=== PATIENT | female | born 1965 | race Caucasian/White ===

== ENCOUNTER 2019-08-23 05:34 | Observation (INO) ==
--- NOTE | 2019-08-16 10:36 | Anesthesiology Consultation ---
Date of Service August 16, 2019 Assessment & Plan (1) Encounter for pre-operative examination: Await surgeon-ordered pre-op labs. If not completed prior to DOS will do AM DOS. Chart Review Chart Review: Acceptable Risk for Surgery (pending pre-op labs) and Patient NOT seen in Pre Admission Testing History Surgery Operation Date: 08/23/19 07:00 Proposed Procedures p Exam Under Anesthesia, Transvaginal Hysterectomy, Cystoscopy - Lucita Chan MD Height/Weight Height: 5 ft 4 in Weight: 58.967 kg Allergies Allergy/AdvReac Type Severity Reaction Status Date / Time No Known Drug Allergies Allergy Verified 08/07/19 11:36 Medications Home Medications Medication Instructions Recorded Confirmed Last Taken valacyclovir 1 gram tablet 2,000 mg PO BID PRN 1 Days #30 tab 06/18/19 08/07/19 Unknown multivitamin 2 tab PO QAM 08/07/19 08/07/19 Unknown Past Medical History Medical History Cold sore Past Family History Family History Mother Colorectal cancer Hypertension Heart disease, hypertensive Myocardial infarction Brother Diabetes Denies family history of Ovarian cancer Prostate cancer Breast cancer Past Surgical History Surgical History H/O knee surgery R meniscus repair. History of ankle surgery OATS of R ankle. 2013 History of colonoscopy History of dilatation and curettage S/P ACL repair L knee 2019 Social History Smoking Status: Never smoker Do You Dip or Chew Tobacco: No Hx Alcohol Use: Yes Alcohol type: wine alcohol intake frequency: holidays/special occasions only Hx Substance Use: No substance use type: does not use Testing Electrocardiogram Date: 05/14/19 Findings: + SB @ (55bpm) Septal infarct. No significant change from 08/21/12.
[2019-08-23] MEDS ORDERED: LACTATED RINGER'S 1,000 ML IV SCH (06:00)
[2019-08-23] MEDS ORDERED: LR 15ML/HR IV SCH (06:00)
[2019-08-23] MEDS ORDERED: BUPIVACAINE/EPINEPHRINE 0.5% MPF 1:200,000 10 ML VIAL ONE ×2 (06:38→07:53)
[2019-08-23] MEDS ORDERED: PROPOFOL IV EMULSION 10 MG/ML 20 ML VIAL IV ONE (06:40)
[2019-08-23] MEDS ORDERED: LIDOCAINE HCL 2% 2 ML VIAL/AMP(20MG/ML) INFIL ONE (06:40)
[2019-08-23] MEDS ORDERED: DEXAMETHASONE SOD INJ 4 MG/ML VIAL ONE (06:40)
[2019-08-23] MEDS ORDERED: ONDANSETRON INJ 2 MG/ML 2 ML VIAL ONE (06:40)
[2019-08-23] MEDS ORDERED: MIDAZOLAM HCL 1 MG/ML 2ML VIAL ONE (06:41)
[2019-08-23] MEDS ORDERED: fentaNYL citrate 100 MCG/2 ML VIAL ONE ×2 (06:41→10:08)
--- NOTE | 2019-08-23 06:56 | History & Physical Bridge Note ---
Date of Service August 23, 2019 History & Physical Bridge Note I have examined the patient, reviewed the History & Physical and in the interval since the performance of the History & Physical I have noted the following changes of clinical significance: no changes noted
[2019-08-23] MEDS: CEFAZOLIN 2000MG 2,000 MG/15 ML SYR IV SCH ×2 (07:00→07:15)
[2019-08-23] MEDS ORDERED: PREMARIN VAG CRM 14 APPLN/30 GM TUBE ONE (09:01)
[2019-08-23] MEDS ORDERED: GLYCOPYRROLATE 0.2 MG/ML VIAL ONE (09:11)
[2019-08-23] MEDS ORDERED: NEOSTIGMINE METHYLSULFATE 5 MG/5 ML SYR ONE (09:11)
--- NOTE | 2019-08-23 09:25 | Post Operative Brief Note ---
Immediate Post Op Note v1 Date of Surgery August 23, 2019 Pre & Post Diagnosis Operation Date: 08/23/19 07:00 Pre-Op Diagnosis: Endometrial Intraepithelial Neoplasia Post-Op Diagnosis: Endometrial Intraepithelial Neoplasia I identified the patient and participated in the time-out.: Yes Procedure Operation Date: 08/23/19 07:00 Actual Procedures p Exam Under Anesthesia, Transvaginal Hysterectomy, Bilateral Salpingectomy, Kasper Culdoplasty, Cystoscopy(Not Applicable) - Lucita Joshua MD Surgeon Lucita Joshua MD Manager Primary Dr Amado, MUSA Cavazos Estimated Blood Loss 100 Findings Consistent with Post-Op Diagnosis Drains Choi Catheter (choi inserted prior to procedure start by Dr. Oliva without difficulty) Anesthesia Type General Complications none Disposition Accompanied Patient To Recovery: Yes Disposition: Recovery Room
[2019-08-23] MEDS ORDERED: ONDANSETRON INJ 2 MG/ML 2 ML VIAL IV PRN ×3 (10:04→15:32)
[2019-08-23] MEDS ORDERED: fentaNYL citrate 100 MCG/2 ML VIAL IV PRN (10:04)
[2019-08-23] MEDS ORDERED: ATROPINE SULFATE 0.1 MG/ML 10ML SYR IV PRN (10:04)
[2019-08-23] MEDS ORDERED: ePHEDrine sulfate 50 MG/ML AMP IV PRN (10:04)
--- NOTE | 2019-08-23 10:44 | Operative Report (OR) ---
DATE OF OPERATION: 08/23/2019 PREOPERATIVE DIAGNOSES: The patient is a 54-year-old , perimenopausal female with abnormal uterine bleeding, history of untreated endometrial hyperplasia and endometrial intraepithelial neoplasia per pathology collected by hysteroscopy and D& C in May of 2019. POSTOPERATIVE DIAGNOSIS: Same. PROCEDURES: Exam under anesthesia, transvaginal hysterectomy, bilateral salpingectomy, Kasper culdoplasty and cystoscopy. SURGEON: Lucita Joshua MD PARTY HOST/HOSTESS: Cameron Amado and MUSA Cavazos. EBL: 100 mL DRAINS: Barnes catheter drained 25 mL of clear urine. ANESTHESIA: General endotracheal. COMPLICATIONS: None. IV FLUIDS: 1200 mL of lactated ringer. FINDINGS: Exam under anesthesia revealed stage I uterine prolapse and cystocele, anteverted 8-week size uterus and nonpalpable adnexa. PROCEDURE: The patient was taken to the operating room where general anesthesia was given without difficulty. She was placed in dorsal lithotomy position, prepared and draped in usual sterile fashion. Barnes catheter was inserted into the bladder to drain. Exam under anesthesia was done with above findings and gloves were changed A weighted speculum was placed in the patient's vagina and the bladder was retracted with Trevino retractors and cervix was visualized, grasped with single tooth tenaculum. The vagina around the cervix was infiltrated with 0.5% lidocaine with epinephrine circumferentially. The vaginal mucosa around the cervix was incised with the tip of Bovie circumferentially and then was dissected off sharply with Tinoco scissors and then pushed back bluntly with the tip of finger with sponge on. Vaginal lateral serrano and bladder were retracted by retractor by assistants. Then the vaginal wall on posterior fornix was held with pick ups shoeing the reflection and posterior cul-de-sac was entered with the tip of Metzenbaum scissors and the peritoneum was identified. A suture was placed holding the posterior culde sac peritoneum and vagina wall. The peritenoneum was extended laterally with the tip of scissors and then the long weighted speculum was placed in the posterior cul-de-sac to provide retraction. Minimal Clear fluid was obtained from the cul-de-sac. Then the sacrouterine ligaments were felt bilaterally. They were held with Elva clamps, cut and suture ligated x2 and then cardinal ligaments were also felt bilaterally. They were held with Elva clamps, cut and suture ligated on both sides and then bladder was retracted down. Anterior vaginal wall was held with pick ups and the reflection of anterior cul-de-sac was seen. It was entered without difficulty with Metzenbaum scissors and then a retractor placed under the bladder. The uterine arteries on both sides were coagulated x3 and cut with handheld LigaSure and superior branches were also coagulated and cut and then broad ligament on both sides were coagulated and cut with the handheld LigaSure. The right pedicle of the right uterine cornua was held with Elva clamps, cut and suture ligated and then a free tie was also placed behind the first suture and then the left pedicle on the left cornua of the uterus was also held with Elva clamps, cut and suture ligated with 0 Vicryl and then another free tie was placed behind the suture. Excellent hemostasis was achieved. Uterus was taken out from the field. Attention was made to place a sponge with tail in the cul-de-sac to prevent the bowel was coming and all vaginal serrano were retracted with my assistants. Then the right fallopian tube was identified on the cornual pedicle, held with Michi clamps and excised completely with handheld LigaSure. Followed by left fallopian tube which was was identified, grasped with the Michi clamps, again excised completely with handheld LigaSure. Excellent hemostasis was achieved. The pedicles were checked again and found to be hemostatic. Then next we proceeded the Kasper suture and #1 Vicryl was placed from the posterior vagina into the cul-de-sac and then small bites from peritoneum were taken along the cul-de-sac and then brought to the sacrouterine ligaments on both sides and then brought out from the vagina mucosa 1 cm next to the entrance. It was tagged to be tied later. The vagina mucosa was closed with 0 Vicryl in a running fashion. Excellent hemostasis was achieved. Then cystoscopy was done and the bladder was found to be normal. No sutures, no bleeding noted and both ureteral openings were seen and ejecting clear urine on both sides. Cystoscopy was ended and new sterile Barnes catheter was placed into the bladder. The Kasper suture in the vagina was tied up in the vagina cuff and then cut and then vagina was packed with Premarin cream soaked vaginal packing to be kept for 24 hours and then the procedure was ended. All the sponge, needle, instrument count was correct x3. The patient was cleaned, dried, taken out from lithotomy position and she was extubated successfully and she was taken to recovery room in stable condition. No complications happened. I was present and Dr. Amado and MUSA Cavazos were present during whole procedure assisting with the procedure. She received 2 grams of cefazolin before surgery. I attest to the content of the Intraoperative Record and any orders documented therein. Any exceptions are noted below. DEBRA
[2019-08-23] MEDS ORDERED: OXYCODONE HCL IR 5 MG TAB (IMMEDIATE RELEASE) PO PRN (11:15)
[2019-08-23] MEDS: LACTATED RINGER'S 1,000 ML IV SCH ×2 (11:52→21:17)
--- NOTE | 2019-08-23 12:18 | Anesthesiology Progress Note ---
Date of Service August 23, 2019 Anesthesia Post Procedure Vital Signs Vital Signs: Temp Pulse Pulse Pulse Resp BP Pulse Ox 08/23/19 11:15 37.1 C 68 18 109/69 96 08/23/19 10:45 65 16 108/64 97 08/23/19 10:30 36.1 C L 54 L 15 109/66 96 08/23/19 10:20 54 L 13 102/67 93 08/23/19 10:05 55 L 19 111/67 100 08/23/19 09:59 36.1 C L 60 13 105/70 100 08/23/19 05:52 36.7 C 75 20 118/79 96 Pain Intensity Lower Abdomen: Pain Intensity: 5 Transfer of Care Handoff Completed per policy Notes Mental Status: alert / awake / arousable Patient Amnestic to Procedure: Yes Nausea / Vomiting: adequately controlled Pain: adequately controlled Airway Patency, RR, SpO2: stable & adequate BP & HR: stable & adequate Hydration State: stable & adequate Anesthetic Complications: no major complications apparent
[2019-08-23] MEDS ORDERED: KETOROLAC TROMETHAMINE 15 MG/ML VIAL IV PRN (12:22)
[2019-08-23] MEDS ORDERED: MEPERIDINE HCL 25 MG/ML CARP/VIAL IV PRN (12:22)
[2019-08-23] MEDS: SIMETHICONE 80 MG CHEW PO SCH ×2 (12:38→17:57)
--- NOTE | 2019-08-23 13:50 | Obstetrical Progress Note ---
Date of Service August 23, 2019 Assessment & Plan Admission and Anticipated Discharge Date Admission Date: August 23, 2019 Subjective Postop check Patient is seen and examined Feels well, no complaints Pain is under control with meds No CP/ SOB/ Dizziness/ N&V/ VB/ Leg pain Not OOB yet Tolerating clears Explained about the surgery and findings Vital Signs Temp Pulse Pulse Pulse Resp BP Pulse Ox 08/23/19 13:15 36.5 C 81 18 117/70 99 08/23/19 12:15 36.5 C 63 18 108/68 98 08/23/19 11:45 36.5 C 70 18 109/72 97 08/23/19 11:15 37.1 C 68 18 109/69 96 08/23/19 10:45 65 16 108/64 97 08/23/19 10:30 36.1 C L 54 L 15 109/66 96 08/23/19 10:20 54 L 13 102/67 93 08/23/19 10:05 55 L 19 111/67 100 08/23/19 09:59 36.1 C L 60 13 105/70 100 08/23/19 05:52 36.7 C 75 20 118/79 96 Intake & Output 08/22/19 08/23/19 08/23/19 22:59 06:59 14:59 Intake Total 1700 / 1700 Output Total 250 / 250 Balance 1450 / 1450 Weight 60.2 kg Intake: IV 200 / 200 Lr 1,000 ml @ 15 mls/hr IV . 200 / 200 Q24H [facility] Rx#:[id number] IV Perioperative 1500 / 1500 Output: Estimated Blood Loss 100 / 100 Urine Amount (Catheter) 150 / 150 Choi/Indwelling 150 / 150 PE: General: Alert, orientedx3, NAD CVS: S1S2 RRR Lungs: CTAB Abd: soft, NT, ND, BS+, No VB, packing tip dry Ext: NT, no edema, SCD's on AP: 54 yo female s/p EUA, TVH, BL Salpingectomy, Cystoscopy , pod#0 VSS Afebrile doing well Continue to routine postop care Encourage PO intake, may ambulate D/C choi and packing in am Results & Data ([facility]) Vital Signs (Past 12 Hours) Vital Signs Temp Pulse Pulse Pulse Resp BP Pulse Ox 08/23/19 13:15 36.5 C 81 18 117/70 99 08/23/19 12:15 36.5 C 63 18 108/68 98 08/23/19 11:45 36.5 C 70 18 109/72 97 08/23/19 11:15 37.1 C 68 18 109/69 96 08/23/19 10:45 65 16 108/64 97 08/23/19 10:30 36.1 C L 54 L 15 109/66 96 08/23/19 10:20 54 L 13 102/67 93 08/23/19 10:05 55 L 19 111/67 100 08/23/19 09:59 36.1 C L 60 13 105/70 100 08/23/19 05:52 36.7 C 75 20 118/79 96
[2019-08-23] MEDS: IBUPROFEN 600 MG TAB PO SCH ×2 (13:59→17:57)
[2019-08-23] MEDS: ACETAMINOPHEN 500 MG TAB PO SCH ×2 (14:00→20:00)
[2019-08-23] MEDS ORDERED: CEFAZOLIN 2000MG 2,000 MG/15 ML SYR IV ONE (15:00)
[2019-08-23] MEDS: DOCUSATE SODIUM 100 MG CAP PO SCH (21:11)
[2019-08-24] MEDS: IBUPROFEN 600 MG TAB PO SCH ×2 (00:04→05:28)
[2019-08-24] MEDS: SIMETHICONE 80 MG CHEW PO SCH ×2 (00:04→05:28)
[2019-08-24] MEDS: ACETAMINOPHEN 500 MG TAB PO SCH (05:29)
[2019-08-24 05:43] LABS: Basophils # (auto) 0.02 K/uL (0-0.2); Basophils % (auto) 0.2 %; Eosinophils % (auto) 1.1 %; Hematocrit (blood only) 34.1 % (37-47); Hemoglobin 11.7 g/dL (12.0-16.0); Immature Granulocytes # (auto) 0.01 K/uL (0.00-0.02); Immature Granulocytes % (auto) 0.1 %; Lymphocytes # (auto) 2.08 K/uL (1.2-3.4); Lymphocytes % (auto) 23.9 %; Mean Corpuscular Hemoglobin 32.7 pg (25-34); Mean Corpuscular Hgb Conc 34.3 g/dL (32-36); Mean Corpuscular Volume 95.3 fL (80-100); Mean Platelet Volume 9.6 fL (7.4-10.4); Monocytes # (auto) 0.71 K/uL (0.11-0.59); Monocytes % (auto) 8.2 %; Neutrophils # (auto) 5.79 K/uL (1.4-6.5); Neutrophils % (auto) 66.5 %; Platelet Count 213 K/uL (130-400); RDW Coefficient of Variation 13.1 % (11.5-14.5); RDW Standard Deviation 45.6 fL (36.4-46.3); Red Blood Count 3.58 M/uL (4.2-5.4); White Blood Count 8.71 K/uL (4.8-10.8)
[2019-08-24 06:09] LABS: BUN Creatinine Ratio 10.6 (10-20); Calcium 8.2 mg/dl (8.5-10.1); Creatinine Clr Calc Pharmacy 64.6 ml/min; Est GFR (African American) 88.8; Est GFR (Non-African American) 76.6; Potassium 3.9 mmol/L (3.5-5.1)
[2019-08-24] MEDS: LACTATED RINGER'S 1,000 ML IV SCH (07:41)
[2019-08-24] MEDS: DOCUSATE SODIUM 100 MG CAP PO SCH (08:54)
--- NOTE | 2019-08-24 09:55 | Obstetrical Progress Note ---
Date of Service August 24, 2019 Assessment & Plan Admission and Anticipated Discharge Date Admission Date: August 23, 2019 Subjective Patient is seen and examined. She feels well, no complaints. Pain is under control with oral meds. Motrin and Tylenol only Ambulating without dizziness Tolerating regular diet with out N&V Flatus + BM neg No Vaginal Bleeding No fever/ chills/ CP/ SOB/ N&V/ Leg pain Vital Signs Temp Pulse Resp BP Pulse Ox 08/24/19 07:40 36.6 C 64 16 106/71 98 08/24/19 05:30 37.1 C 66 18 118/75 96 08/24/19 00:00 36.6 C 67 18 131/77 97 08/23/19 22:10 37.4 C Lab Results 08/19/19 08/23/19 08/24/19 Range/Units 11:28 06:19 05:27 WBC 8.71 (4.8-10.8) K/uL RBC 3.58 L (4.2-5.4) M/uL Hgb 11.7 L (12.0-16.0) g/dL Hct 34.1 L (37-47) % MCV 95.3 (80-100) fL MCH 32.7 (25-34) pg MCHC 34.3 (32-36) g/dL RDW Std Deviation 45.6 (36.4-46.3) fL RDW Coeff of Cori 13.1 (11.5-14.5) % Plt Count 213 (130-400) K/uL MPV 9.6 (7.4-10.4) fL Immature Gran % (Auto) 0.1 % Neut % (Auto) 66.5 % Lymph % (Auto) 23.9 % [place] % (Auto) 8.2 % Eos % (Auto) 1.1 % Baso % (Auto) 0.2 % Immature Gran # (Auto) 0.01 (0.00-0.02) K/uL Neut # (Auto) 5.79 (1.4-6.5) K/uL Lymph # (Auto) 2.08 (1.2-3.4) K/uL [place] # (Auto) 0.71 H (0.11-0.59) K/uL Eos # (Auto) 0.10 (0-0.5) K/uL Baso # (Auto) 0.02 (0-0.2) K/uL Sodium (136-145) mmol/L Potassium (3.5-5.1) mmol/L Chloride (98-107) mmol/L Carbon Dioxide (21-32) mmol/L Anion Gap (3-11) BUN (7-18) mg/dl Creatinine (0.6-1.2) mg/dl Est Cr Clr Drug Dosing ml/min Est GFR ( Amer) Est GFR (Non-Af Amer) BUN/Creatinine Ratio (10-20) Glucose (70-99) mg/dl Calcium (8.5-10.1) mg/dl POC Ur Test NEG (NEG) Blood Type B Negative Antibody Screen NEGATIVE 08/24/19 Range/Units 05:27 WBC (4.8-10.8) K/uL RBC (4.2-5.4) M/uL Hgb (12.0-16.0) g/dL Hct (37-47) % MCV (80-100) fL MCH (25-34) pg MCHC (32-36) g/dL RDW Std Deviation (36.4-46.3) fL RDW Coeff of Cori (11.5-14.5) % Plt Count (130-400) K/uL MPV (7.4-10.4) fL Immature Gran % (Auto) % Neut % (Auto) % Lymph % (Auto) % [place] % (Auto) % Eos % (Auto) % Baso % (Auto) % Immature Gran # (Auto) (0.00-0.02) K/uL Neut # (Auto) (1.4-6.5) K/uL Lymph # (Auto) (1.2-3.4) K/uL [place] # (Auto) (0.11-0.59) K/uL Eos # (Auto) (0-0.5) K/uL Baso # (Auto) (0-0.2) K/uL Sodium 140 (136-145) mmol/L Potassium 3.9 (3.5-5.1) mmol/L Chloride 110 H (98-107) mmol/L Carbon Dioxide 26 (21-32) mmol/L Anion Gap 4.0 (3-11) BUN 9 (7-18) mg/dl Creatinine 0.86 (0.6-1.2) mg/dl Est Cr Clr Drug Dosing 64.6 ml/min Est GFR ( Amer) 88.8 Est GFR (Non-Af Amer) 76.6 BUN/Creatinine Ratio 10.6 (10-20) Glucose 92 (70-99) mg/dl Calcium 8.2 L (8.5-10.1) mg/dl POC Ur Test (NEG) Blood Type Antibody Screen PE: General: Alert, orientedx3, NAD CVS: S1S2 RRR Lungs; CTAB Abd: soft, NT, ND, BS+ Perineum intact, vag packing is removed, scant blood on it. Barnes is d/c'd Ext; NT, no edema AP: 54 yo s/p EUA, TVH, BL Salpingectomy, Cystoscopy, pod# 1 VSS Afebrile doing well Vag pack anf loey were removed Plan to d/c home after void Encourage ambulation, PO intake All questions were answered Discussed when to call Results & Data ([facility]) Vital Signs (Past 12 Hours) Vital Signs Temp Pulse Resp BP Pulse Ox 08/24/19 07:40 36.6 C 64 16 106/71 98 08/24/19 05:30 37.1 C 66 18 118/75 96 08/24/19 00:00 36.6 C 67 18 131/77 97 08/23/19 22:10 37.4 C
--- NOTE | 2019-09-03 08:52 | Discharge Summary (DS) ---
DETAILS OF ADMISSION: The patient is a 54-year-old G4, P4-0-0-4 female with abnormal uterine bleeding, endometrial hyperplasia with atypia. She was admitted on 08/23/2019 for transvaginal hysterectomy and bilateral salpingectomy and cystoscopy. She had the above surgery without complications. She was taken to fourth floor, observed overnight. Her vital signs were stable, afebrile. Her vaginal packing was dry. Her Barnes was draining clear urine. On postop day #1, the patient was doing well. Vaginal packing was removed. Barnes was discontinued. She ambulated. She voided without difficulty. She tolerated regular diet. Vital signs were stable, afebrile. H and H were 11.7/34.1. She was discharged home on postop day #1. Discharge instructions were given. Prescriptions were written for pain. She is to be seen in the office in a week. All questions were answered.
== END 2019-08-24 11:07 | disposition home or self-care (01) ==
LOC: 4N 05:34 → ASU 05:34